=== PATIENT | male | born 1945 | race Caucasian/White ===

== ENCOUNTER 2017-07-18 20:41 | Inpatient (IN) | payer MEDICARE, BC ==
[~2017-07-18] VITALS: Ht 170.2 cm; Wt 68.0 kg
[~2017-07-18 20:41] MED LIST: BACITRACIN15 GM TOPIC; BACTRIM DS TAB1 EAC1 ORAL; CEPHALEXIN500 MG ORAL; CYCLOBENZAPRINE10 MG ORAL; FERROUS SULFAT325 MG ORAL; FLUOXETINE HCL40 MG ORAL; FOLIC ACID1 MG ORAL; HYTRIN2 MG PO; KEFLEX500 MG ORAL; LEVOTHYROXINE25 MCG ORAL; NKM; SILVADENE CREAM50 GM TOP; VICODIN 5-3001 EACH ORAL; ZOCOR20 M1 ORAL
[2017-07-18] MEDS ORDERED: TRAMADOL HCL50 MG ORAL (20:52)
[2017-07-18] MEDS ORDERED: BUPROPION HCL100 MG ORAL (20:52)
[2017-07-18] MEDS ORDERED: AMLODIPINE BES2.5 MG ORAL (20:52)
[2017-07-18 21:22] VITALS: BP 179/83
--- NOTE | 2017-07-18 21:25 | Emergency Room Report ---
History of Present Illness General Chief Complaint: Pain Source: Patient Present Illness HPI 72-year-old male, history of hypertension, frequent falls, coming from home for right buttocks hematoma. Patient states that he normally falls about once a month. States that yesterday he fell, felt very dizzy and then fell to the ground. He states that he likely lost consciousness because he woke up on the floor. Sustained a large hematoma to his right buttocks. He lives by himself, no home health aid. States that he has not really been eating or drinking today. Denies any headache no nausea no vomiting. Allergies: Coded Allergies: No Known Allergies (Unverified , 02/20/14) Patient History Past Medical History: see triage record Past Surgical History: none Pertinent Family History: none Reviewed Nursing Documentation: PMH: Agreed; PSxH: Agreed Nursing Documentation-PMH Hx Hypertension: Yes Hx Cancer: Yes - 2001 throat cancer Hx Gastrointestinal Problems: Yes Hx Neurological Problems: Yes Hx Head Trauma: Yes Hx Tremors: Yes Hx Dizziness: Yes Hx Headaches: Yes Review of Systems All Other Systems: negative except mentioned in HPI Physical Exam Vital Signs Date Time Temp Pulse Resp B/P (MAP) Pulse Ox O2 Delivery O2 Flow Rate FiO2 07/18/17 20:44 98.3 110 18 186/92 96 Room Air 98.2 Sp02 EP Interpretation: reviewed, normal General Appearance: alert, GCS 15, moderate distress Head: normocephalic, atraumatic Eyes: bilateral eye normal inspection, bilateral eye PERRL, bilateral eye EOMI ENT: normal ENT inspection, normal pharynx, normal voice, moist mucus membranes Neck: normal inspection, full range of motion, supple, no meningismus, no bony tend Respiratory: normal inspection, lungs clear, normal breath sounds, no respiratory distress, no retraction, no wheezing, speaking full sentences, chest symmetrical Cardiovascular #1: normal inspection, regular rate, rhythm, no edema, normal capillary refill Cardiovascular #2: 2+ radial (R), 2+ radial (L) Gastrointestinal: normal inspection, non tender, soft, non-distended, no guarding Genitourinary: no CVA tenderness Musculoskeletal: other - Right buttocks with large hard hematoma, significant amount of ecchymosis, no other signs of trauma and other extremity, full range of motion, able to stand on both lower extremities without issue Neurologic: normal inspection, alert, oriented x3, responsive, motor strength/ tone normal, sensory intact, normal gait, speech normal Psychiatric: normal inspection, judgement/insight normal, memory normal Skin: normal inspection, normal color, no rash, warm/dry, well hydrated, normal turgor Medical Decision Making Diagnostic Impression: Primary Impression: Traumatic hematoma of buttock Additional Impressions: Syncope Frequent falls ER Course 72-year-old male with syncopal episode, traumatic hematoma right buttocks DDX: Vasovagal vs. orthostatic / hypovolemic/dehydration vs. cardiac arrhythmia (SVT , Afib) vs. cardiac (, ACS) vs. PE vs. metabolic (hypoglycemia, hypoxia), vs neuro (seizure, CVA, intracranial bleed) Traumatic injury of right buttocks, no other signs of injury Plan: bgm, cbc, bmp, ekg, cxr consider IVF CT head ER course: Patient has been monitored during ED stay, HD stable pt unable to provide urine sample at this time nontoxic at bedside Disposition: Patient is to be admitted to telemetry Patient signed out to Dr. Coppola, who has accepted patient for admission. Please note that this Emergency Department Report was dictated using [employer] or ranch animal caretaker technology software, occasionally this can lead to erroneous entry secondary to interpretation by the dictation equipment. EKG Diagnostic Results EP Interpretation: Yes Rate: normal Rhythm: NSR ST Segments: T-wave inversion in V3 V4 V5 ASA given to patient: No Rhythm Strip EP Interpretation: Yes Rate: 90 Rhythm: NSR, no PVCs, no ectopy Chest X-ray CXR: Ordered: Yes 1 view Indication: Syncope EP interpretation: Yes Interpretation: No consolidation, no effusion, no PTX, no acute cardiopulmonary disease Impression: No acute disease Electronically signed by Carlos Dumont MD Laboratory Tests Test 07/18/17 21:15 White Blood Count 6.4 K/UL (4.8-10.8) Red Blood Count 3.84 M/UL (4.70-6.10) L Hemoglobin 12.9 G/DL (14.2-18.0) L Hematocrit 37.3 % (42.0-52.0) L Mean Corpuscular Volume 97 FL (80-99) Mean Corpuscular Hemoglobin 33.5 PG (27.0-31.0) H Mean Corpuscular Hemoglobin Concent 34.5 G/DL (32.0-36.0) Red Cell Distribution Width 11.2 % (11.6-14.8) L Platelet Count 149 K/UL (150-450) L Mean Platelet Volume 7.3 FL (6.5-10.1) Neutrophils (%) (Auto) 80.9 % (45.0-75.0) H Lymphocytes (%) (Auto) 9.0 % (20.0-45.0) L Monocytes (%) (Auto) 9.4 % (1.0-10.0) Eosinophils (%) (Auto) 0.1 % (0.0-3.0) Basophils (%) (Auto) 0.7 % (0.0-2.0) Prothrombin Time 10.0 SEC (9.30-11.50) Prothrombin Time INR 1.0 (0.9-1.1) PTT 30 SEC (23-33) Sodium Level 144 MMOL/L (136-145) Potassium Level 4.2 MMOL/L (3.5-5.1) Chloride Level 103 MMOL/L (98-107) Carbon Dioxide Level 31 MMOL/L (21-32) Anion Gap 10 mmol/L (5-15) Blood Urea Nitrogen 9 mg/dL (7-18) Creatinine 0.9 MG/DL (0.55-1.30) Estimate Glomerular Filtration Rate > 60 mL/min (>60) Glucose Level 134 MG/DL (74-106) H Calcium Level 8.7 MG/DL (8.5-10.1) Total Bilirubin 0.8 MG/DL (0.2-1.0) Aspartate Amino Transferase (AST) 22 U/L (15-37) Alanine Aminotransferase (ALT) 36 U/L (12-78) Alkaline Phosphatase 60 U/L (46-116) Total Creatine Kinase 66 U/L (26-308) Troponin I 0.000 ng/mL (0.000-0.056) Pro-B-Type Natriuretic Peptide 154 pg/mL (0-125) H Total Protein 6.8 G/DL (6.4-8.2) Albumin 4.4 G/DL (3.4-5.0) Globulin 2.4 g/dL Albumin/Globulin Ratio 1.8 (1.0-2.7) Last Vital Signs Date Time Temp Pulse Resp B/P (MAP) Pulse Ox O2 Delivery O2 Flow Rate FiO2 07/18/17 20:44 98.3 110 18 186/92 96 Room Air 98.2 Disposition: ADMITTED INPATIENT Condition: Serious Referrals: NON PHYSICIAN (PCP) Carlos Dumont M.D. Jul 18, 2017 21:25
[2017-07-18 21:37] LABS: BASOPHILS % (AUTO) 0.7 % (0.0-2.0); EOSINOPHILS % (AUTO) 0.1 % (0.0-3.0); HEMATOCRIT 37.3 % (42.0-52.0); HEMOGLOBIN 12.9 G/DL (14.2-18.0); MEAN CORPUSCULAR VOLUME 97 FL (80-99); MONOCYTES % (AUTO) 9.4 % (1.0-10.0); NEUTROPHILS % (AUTO) 80.9 % (45.0-75.0); PLATELET COUNT 149 K/UL (150-450); RED BLOOD COUNT 3.84 M/UL (4.70-6.10); RED CELL DISTRIBUTION WIDTH 11.2 % (11.6-14.8); WHITE BLOOD COUNT 6.4 K/UL (4.8-10.8)
[2017-07-18 22:00] LABS: ALANINE AMINOTRANSFERASE 36 U/L (12-78); ALBUMIN 4.4 G/DL (3.4-5.0); ALBUMIN/GLOBULIN RATIO 1.8 (1.0-2.7); ALKALINE PHOSPHATASE 60 U/L (46-116); ANION GAP 10 mmol/L (5-15); ASPARTATE AMINO TRANSFERASE 22 U/L (15-37); BILIRUBIN,TOTAL 0.8 MG/DL (0.2-1.0); BLOOD UREA NITROGEN 9 mg/dL (7-18); CALCIUM 8.7 MG/DL (8.5-10.1); CARBON DIOXIDE 31 MMOL/L (21-32); CHLORIDE 103 MMOL/L (98-107); CREATINE KINASE 66 U/L (26-308); CREATININE 0.9 MG/DL (0.55-1.30); POTASSIUM 4.2 MMOL/L (3.5-5.1); SODIUM 144 MMOL/L (136-145)
[2017-07-18 23:09] VITALS: BP 148/79
[2017-07-18 23:50] VITALS: BP 144/80
[2017-07-19] MEDS ORDERED: D5 1/2NS 1,000 ML IV ONE (02:00)
[2017-07-19] MEDS: traMADol 50mg tab ORAL PRN ×2 (02:03→09:15)
[2017-07-19 03:40] LABS: APPEARANCE,URINE CLEAR; BILIRUBIN, URINE NEGATIVE (NEGATIVE); COLOR,URINE PALE YELLOW; GLUCOSE, URINE (UA) NEGATIVE (NEGATIVE); KETONES,URINE NEGATIVE (NEGATIVE); LEUKOCYTE ESTERASE ,URINE 1+ (NEGATIVE); NITRITE,URINE NEGATIVE (NEGATIVE); PH,URINE 6 (4.5-8.0); PROTEIN,URINE NEGATIVE (NEGATIVE); UROBILINOGEN,URINE NORMAL MG/DL (0.0-1.0)
[2017-07-19 04:00] VITALS: BP 144/79
[2017-07-19] MEDS: Levothyroxine 25mcg tab ORAL SCH (06:46)
[2017-07-19 07:15] LABS: BASOPHILS % (AUTO) 0.6 % (0.0-2.0); EOSINOPHILS % (AUTO) 0.2 % (0.0-3.0); HEMATOCRIT 34.9 % (42.0-52.0); HEMOGLOBIN 11.6 G/DL (14.2-18.0); LYMPHOCYTES % (AUTO) 14.8 % (20.0-45.0); MEAN CORPUSCULAR VOLUME 97 FL (80-99); MONOCYTES % (AUTO) 11.3 % (1.0-10.0); NEUTROPHILS % (AUTO) 73.2 % (45.0-75.0); PLATELET COUNT 118 K/UL (150-450); RED BLOOD COUNT 3.61 M/UL (4.70-6.10); RED CELL DISTRIBUTION WIDTH 11.3 % (11.6-14.8); WHITE BLOOD COUNT 5.4 K/UL (4.8-10.8)
[2017-07-19 07:41] LABS: ALANINE AMINOTRANSFERASE 31 U/L (12-78); ALBUMIN 3.7 G/DL (3.4-5.0); ALBUMIN/GLOBULIN RATIO 1.6 (1.0-2.7); ALKALINE PHOSPHATASE 53 U/L (46-116); ANION GAP 6 mmol/L (5-15); ASPARTATE AMINO TRANSFERASE 19 U/L (15-37); BILIRUBIN,TOTAL 0.9 MG/DL (0.2-1.0); BLOOD UREA NITROGEN 6 mg/dL (7-18); CALCIUM 8.4 MG/DL (8.5-10.1); CARBON DIOXIDE 33 MMOL/L (21-32); CHLORIDE 103 MMOL/L (98-107); CREATININE 0.7 MG/DL (0.55-1.30); PHOSPHORUS 3.4 MG/DL (2.5-4.9); POTASSIUM 3.9 MMOL/L (3.5-5.1); SODIUM 141 MMOL/L (136-145)
[2017-07-19 08:00] VITALS: BP 132/86
[2017-07-19] MEDS: BuPROPion SR 150mg tab ORAL SCH (09:14)
--- NOTE | 2017-07-19 11:24 | Diagnostic Imaging Report ---
Indication: Pain Technique: Continuous helical CT scanning of the head was performed utilizing automated exposure control without intravenous contrast material. Axial and coronal reconstructions were obtained. Comparison: None CT dose: Total DLP 1333.86 mGycm; CTDI vol 70.38 mGy Findings: There is no acute intracranial hemorrhage, mass effect or cortical edema. The ventricles, cisterns and sulci are prominent consistent with atrophy. Periventricular hypoattenuation is seen, a nonspecific finding. The posterior fossa and fourth ventricle are unremarkable. Sellar and suprasellar regions are grossly unremarkable. Visualized paranasal sinuses are clear. There is partial fluid opacification of the bilateral mastoid air cells, left greater than right. No focal lesions of the bony calvarium or soft tissues of the scalp are seen. Atherosclerotic vascular calcifications noted. IMPRESSION: No evidence of acute intracranial hemorrhage, mass effect or cortical edema. MRI may be obtained for more sensitive evaluation as clinically indicated. Atrophy and nonspecific periventricular hypoattenuation suggestive of chronic ischemic microvascular changes. Bilateral mastoid fluid. Correlate clinically to assess for mastoiditis. This corresponds with the statrad preliminary report. The CT scanner at [facility] is accredited by the [employer] and the scans are performed using protocols designed to limit radiation exposure to as low as reasonably achievable to attain images of sufficient resolution adequate for diagnostic evaluation.
[2017-07-19 12:00] VITALS: BP 116/76
--- NOTE | 2017-07-19 13:03 | Diagnostic Imaging Report ---
Indication: Pain Technique: XRAY Chest 1v Comparison: None Findings: Heart size and mediastinal contours are within normal limits given technique. Atherosclerotic changes noted. There is no focal consolidation, pneumothorax or pleural effusion. Orthopedic hardware over the left clavicle. There are degenerative changes of the spine. No acute osseous abnormality seen. Impression: . Limited exam due to patient rotation. No definite radiographic evidence of acute cardiopulmonary disease.
--- NOTE | 2017-07-19 14:36 | History & Physical ---
History and Physical History & Physicial Dictated for Int Med-Dr Coppola no. [id number]. KILEY MCKENNA Jul 19, 2017 14:36
--- NOTE | 2017-07-19 15:29 | Cardiac Electrophysiology PN ---
Subjective Subjective [id number] Objective Last 24 Hour Vital Signs Date Time Temp Pulse Resp B/P (MAP) Pulse Ox O2 Delivery O2 Flow Rate FiO2 07/19/17 12:00 97.5 86 19 116/76 98 Room Air 97.5 07/19/17 09:14 80 132/86 07/19/17 09:00 78 86 88 07/19/17 08:00 98.0 80 20 132/86 98 Room Air 98.0 07/19/17 08:00 76 07/19/17 06:52 79 76 95 07/19/17 04:00 99.0 75 20 144/79 97 Room Air 99.0 07/19/17 04:00 83 07/19/17 00:00 81 07/18/17 23:50 98.8 80 20 144/80 97 Room Air 98.8 07/18/17 23:47 98.2 84 18 148/79 99 Room Air 98.2 07/18/17 23:09 98.2 84 18 148/79 99 Room Air 98.2 07/18/17 21:22 98.2 105 18 179/83 96 Room Air 98.2 07/18/17 20:44 98.3 110 18 186/92 96 Room Air 98.2 Intake and Output 07/18/17 07/19/17 19:00 07:00 Intake Total 1125 ml Output Total 300 ml Balance 825 ml Intake Oral 900 ml IV Total 225 ml Output Urine Total 300 ml # Voids 7 # Bowel Movements 2 Laboratory Tests Test 07/18/17 21:15 07/19/17 02:20 07/19/17 06:45 White Blood Count 6.4 K/UL (4.8-10.8) 5.4 K/UL (4.8-10.8) Red Blood Count 3.84 M/UL (4.70-6.10) L 3.61 M/UL (4.70-6.10) L Hemoglobin 12.9 G/DL (14.2-18.0) L 11.6 G/DL (14.2-18.0) L Hematocrit 37.3 % (42.0-52.0) L 34.9 % (42.0-52.0) L Mean Corpuscular Volume 97 FL (80-99) 97 FL (80-99) Mean Corpuscular Hemoglobin 33.5 PG (27.0-31.0) H 32.1 PG (27.0-31.0) H Mean Corpuscular Hemoglobin Concent 34.5 G/DL (32.0-36.0) 33.2 G/DL (32.0-36.0) Red Cell Distribution Width 11.2 % (11.6-14.8) L 11.3 % (11.6-14.8) L Platelet Count 149 K/UL (150-450) L 118 K/UL (150-450) L Mean Platelet Volume 7.3 FL (6.5-10.1) 7.2 FL (6.5-10.1) Neutrophils (%) (Auto) 80.9 % (45.0-75.0) H 73.2 % (45.0-75.0) Lymphocytes (%) (Auto) 9.0 % (20.0-45.0) L 14.8 % (20.0-45.0) L Monocytes (%) (Auto) 9.4 % (1.0-10.0) 11.3 % (1.0-10.0) H Eosinophils (%) (Auto) 0.1 % (0.0-3.0) 0.2 % (0.0-3.0) Basophils (%) (Auto) 0.7 % (0.0-2.0) 0.6 % (0.0-2.0) Prothrombin Time 10.0 SEC (9.30-11.50) Prothromb Time International Ratio 1.0 (0.9-1.1) Activated Partial Thromboplast Time 30 SEC (23-33) Sodium Level 144 MMOL/L (136-145) 141 MMOL/L (136-145) Potassium Level 4.2 MMOL/L (3.5-5.1) 3.9 MMOL/L (3.5-5.1) Chloride Level 103 MMOL/L (98-107) 103 MMOL/L (98-107) Carbon Dioxide Level 31 MMOL/L (21-32) 33 MMOL/L (21-32) H Anion Gap 10 mmol/L (5-15) 6 mmol/L (5-15) Blood Urea Nitrogen 9 mg/dL (7-18) 6 mg/dL (7-18) L Creatinine 0.9 MG/DL (0.55-1.30) 0.7 MG/DL (0.55-1.30) Estimat Glomerular Filtration Rate > 60 mL/min (>60) > 60 mL/min (>60) Glucose Level 134 MG/DL (74-106) H 115 MG/DL (74-106) H Calcium Level 8.7 MG/DL (8.5-10.1) 8.4 MG/DL (8.5-10.1) L Total Bilirubin 0.8 MG/DL (0.2-1.0) 0.9 MG/DL (0.2-1.0) Aspartate Amino Transf (AST/SGOT) 22 U/L (15-37) 19 U/L (15-37) Alanine Aminotransferase (ALT/SGPT) 36 U/L (12-78) 31 U/L (12-78) Alkaline Phosphatase 60 U/L (46-116) 53 U/L (46-116) Total Creatine Kinase 66 U/L (26-308) Troponin I 0.000 ng/mL (0.000-0.056) 0.000 ng/mL (0.000-0.056) Pro-B-Type Natriuretic Peptide 154 pg/mL (0-125) H Total Protein 6.8 G/DL (6.4-8.2) 6.0 G/DL (6.4-8.2) L Albumin 4.4 G/DL (3.4-5.0) 3.7 G/DL (3.4-5.0) Globulin 2.4 g/dL 2.3 g/dL Albumin/Globulin Ratio 1.8 (1.0-2.7) 1.6 (1.0-2.7) Urine Color Pale yellow Urine Appearance Clear Urine pH 6 (4.5-8.0) Urine Specific Center 1.010 (1.005-1.035) Urine Protein Negative (NEGATIVE) Urine Glucose (UA) Negative (NEGATIVE) Urine Ketones Negative (NEGATIVE) Urine Occult Blood 1+ (NEGATIVE) H Urine Nitrite Negative (NEGATIVE) Urine Bilirubin Negative (NEGATIVE) Urine Urobilinogen Normal MG/DL (0.0-1.0) Urine Leukocyte Esterase 1+ (NEGATIVE) H Urine RBC 0-2 /HPF (0 - 0) H Urine WBC 0-2 /HPF (0 - 0) Urine Squamous Epithelial Cells Few /LPF (NONE/OCC) Urine Bacteria Few /HPF (NONE) Phosphorus Level 3.4 MG/DL (2.5-4.9) Magnesium Level 1.7 MG/DL (1.8-2.4) L Henry Wolf MD Jul 19, 2017 15:29
--- NOTE | 2017-07-19 15:44 | Diagnostic Imaging Report ---
Indication: Pain Technique: XRAY Hip Routine 2v+ R Comparison: None Findings: There is no definite/displaced hip fracture. Degenerative change of the hip is seen with subchondral sclerosis. No radiopaque foreign body or focal soft tissue abnormality appreciated. Impression: No definite/displaced acute fracture. No dislocation.
[2017-07-19 16:00] VITALS: BP 147/90
--- NOTE | 2017-07-19 16:26 | Diagnostic Imaging Report ---
Indication: Pain status post fall Technique: CT osseous pelvis was performed utilizing automated exposure control without intravenous contrast material. Axial, sagittal and coronal images were generated. CT dose: Total DLP 392 mGycm; CTDI vol 10.8 mGy Comparison: Correlation made to concurrent radiographs Findings: There is no acute fracture or dislocation. Mild degenerative change of the bilateral hips is noted with mild superior joint space narrowing, subchondral sclerosis and cystic change as well as small marginal osteophytes. Mild enthesopathic changes are noted about the pelvic bones. The symphysis pubis and bilateral sacroiliac joints are preserved. Degenerative changes of the lower lumbar spine are partially visualized. Images through the visceral pelvis demonstrate no evidence of bowel obstruction. The aorta and iliac arteries are normal in caliber with moderate atherosclerotic calcification. Partially imaged lower pole of the right kidney is grossly unremarkable. There is under distention versus thickening of the bladder wall. Prostate is mildly enlarged with central coarse calcifications. In the subcutaneous tissues of the right gluteal region there is a hyperdense collection measuring 7.2 x 3.5 cm with surrounding soft tissue stranding. This may represent a small subcutaneous/intramuscular hematoma. IMPRESSION: Mild degenerative change of the bilateral hips. No acute fracture or dislocation. Hyperdense collection in the posterior gluteal soft tissues on the right likely representing a gluteal subcutaneous/intramuscular hematoma. There is surrounding soft tissue stranding. No well-defined/drainable fluid collection to suggest abscess. Underdistention of the bladder versus bladder wall thickening. Correlate with urinalysis to exclude cystitis. Mild prostatomegaly. Atherosclerosis. The CT scanner at [facility] is accredited by the [employer] and the scans are performed using protocols designed to limit radiation exposure to as low as reasonably achievable to attain images of sufficient resolution adequate for diagnostic evaluation.
--- NOTE | 2017-07-19 18:00 | History and Physical Report ---
DATE OF ADMISSION: 07/18/2017 CHIEF COMPLAINT: The patient is a 72-year-old white male, who presents with a chief complaint of right hip pain. HISTORY OF PRESENT ILLNESS: The patient has a history of degenerative disease of the cervical spine. The patient has undergone epidural injections. The patient also has a history of vertigo. History of present illness began on 07/17/2017. The patient experienced syncopal episode. The patient states he lost consciousness. The patient fell striking his right buttock. The patient presented to [place] emergency room. The patient is admitted for syncopal episode to rule out acute coronary syndrome versus acute cerebrovascular accident. PAST MEDICAL HISTORY: Significant for, 1. Hypertension. 2. Hypothyroidism. 3. Hypercholesterolemia. 4. Squamous cell carcinoma of the throat in 2001, status post surgery and radiation therapy. PAST SURGICAL HISTORY: Significant for, 1. Appendectomy and tonsillectomy. 2. Resection of squamous cell throat cancer in 2001. CURRENT MEDICATIONS: 1. Amlodipine 2.5 mg p.o. daily. 2. Wellbutrin XL 150 mg p.o. daily. 3. Flexeril 10 mg p.o. at bedtime. 4. Iron sulfate 325 mg p.o. twice daily. 5. Prozac 40 mg p.o. daily. 6. Folic acid 1 mg p.o. daily. 7. Vicodin 5/300 one tab p.o. q.6 hours p.r.n. 8. Levoxyl 0.025 mg p.o. daily. 9. Zocor 20 mg p.o. at bedtime. 10. Terazosin 2 mg p.o. at bedtime. 11. Tramadol 50 mg p.o. q.6 hours p.r.n. 12. Bactrim double-strength one tablet p.o. twice daily. ALLERGIES: No known drug allergies. SOCIAL HISTORY: The patient is . The patient denies tobacco use. The patient admits to alcohol use of two glasses of wine daily. The patient is retired. REVIEW OF SYSTEMS: CONSTITUTIONAL: The patient denies weight loss or weight gain. The patient denies fevers or chills. HEENT: The patient denies ear or throat pain. The patient denies headache. CARDIOVASCULAR: The patient denies palpitations or chest pain. CHEST: The patient denies wheeze or shortness of breath. ABDOMEN: The patient denies nausea, vomiting, diarrhea, or constipation. GENITOURINARY: The patient denies dysuria or increased frequency of urination. NEUROMUSCULAR: The patient complains of right buttock pain as above. The patient denies seizures or generalized weakness. The patient complains of vertigo as above. PHYSICAL EXAMINATION: VITAL SIGNS: Temperature 99.0, respirations 20, pulse 75, and blood pressure 144/79. GENERAL: The patient is a well-developed and well-nourished white male, in no apparent distress. HEENT: Eyes, pupils are equal and responsive to light and accommodation. Extraocular movements are intact. NECK: Supple without lymphadenopathy. LUNGS: Clear to auscultation bilaterally without wheezes or rales. CARDIOVASCULAR: Regular rhythm and rate. S1 and S2 are normal without murmurs, rubs, or gallops. ABDOMEN: Soft, nontender, and nondistended. Positive bowel sounds. No evidence of hepatosplenomegaly. Currently, no rebound or guarding noted. EXTREMITIES: Negative for clubbing, cyanosis, or edema. There is a large approximate 30 cm diameter ecchymosis on the right buttock with approximate 20 cm hematoma. Hip shows normal flexion and extension. NEUROLOGIC: Cranial nerves II through XII are grossly intact without focal deficits. Motor strength is 5/5 bilaterally. Deep tendon reflexes are 2+ plantar. LABORATORY STUDIES: WBC 6.4, hemoglobin 12.9, hematocrit 37.3, and platelets 149,000. Sodium 144, potassium 4.2, chloride 103, CO2 31, BUN 9, creatinine 0.9, and glucose 134. Troponin 0.0. BNP elevated slightly of 154. Protime 10.0, INR 1.0, and PTT 30. Urinalysis showed 1+ occult blood and 1+ leukocyte esterase with 0 to [address] scan of the brain failed to demonstrate acute hemorrhage or infarct. An x-ray and CT scan of the right hip is pending. An EKG demonstrated normal sinus rhythm at 90 beats per minute. There are no acute ST changes or Q-waves noted. ASSESSMENT: This is a 72-year-old white male. 1. Syncopal episode. 2. Hematoma of the right buttock. 3. Hypertension. 4. Hypercholesterolemia. 5. Hypothyroidism. 6. History of squamous cell cancer of the throat. 7. Degenerative disc disease of the cervical spine. TREATMENT: 1. Syncopal episode. A Neurology consultation has been obtained with Dr. Gordon. We will follow recommendation of Dr. Gordon. Differential includes syncope versus acute cerebrovascular accident. We will follow recommendations of Neurology. A Cardiology consultation has been obtained with Dr. Henry Wolf as well. 2. Hematoma of the right buttock. An x-ray of the right hip is pending. A CT scan of the right hip is pending. A fracture is a possibility given the large size of the hematoma. 3. Hypertension. Continue Norvasc as above. 4. Hypothyroidism. Continue Synthroid as above. 5. Hypercholesterolemia. Continue Zocor as above. 6. Depression. Continue Wellbutrin as above. Eloy Rivera M.D. DR: JAMAL JOB#: [id number] CC:
[2017-07-19 20:00] VITALS: BP_SYST 122; BP_SYST 128; BP_SYST 138; BP_DIAS 70; BP_DIAS 73; BP_DIAS 74
--- NOTE | 2017-07-19 20:45 | Consultation ---
DATE OF CONSULTATION: 07/19/2017 CARDIOLOGY CONSULTATION CONSULTING PHYSICIAN: Henry Wolf M.D. REFERRING PHYSICIAN: Eladio Coppola M.D. REASON FOR CONSULTATION: Management of hypertension and syncope. HISTORY OF PRESENT ILLNESS: The patient is a 72-year-old gentleman with history of hypertension and recurrent falls comes from home for right buttock hematoma. The patient apparently has been falling about once a month and yesterday he felt very dizzy and fell to the ground. He also lost consciousness and woke up on the floor and noticed a large hematoma on his right buttock. The patient lives by himself with no home nurse. The patient today has had some cervical problems for which he will be getting injection. REVIEW OF SYSTEMS: Review of systems was performed and was negative other than what was mentioned in the history of present illness. PAST MEDICAL HISTORY: 1. Hypertension. 2. History of throat cancer in 2001. 3. Cervical spine problem. 4. Dizziness. SOCIAL HISTORY: He lives at home. Does not smoke or drink alcohol. FAMILY HISTORY: Noncontributory. LABORATORY DATA: Labs show white count of 5.4, hemoglobin 11.0, hematocrit 35, and platelet count 118. Sodium 141, potassium 3.9, BUN of 16, creatinine 0.7, and glucose of 115. Troponin negative x2. BNP is 154. ASSESSMENT AND PLAN: 1. Syncopal episodes. The etiology is not clear, but the patient has had multiple falls in the past. The patient was already ruled out for myocardial infarction. A 2D echocardiogram and preliminary report showed ejection fraction of 65% to 70%, no evidence of aortic stenosis. A Neurologic evaluation is also pending. 2. Hypertension, on . 3. Hypothyroidism, on Synthroid. 4. Hyperlipidemia, on Lipitor. 5. History of cervical spine disease. Thank you very much, Dr. Coppola, for allowing me to participate in the care of this patient. Please do not hesitate to contact if you have any questions regarding my evaluation. Henry Wolf M.D. DR: Eloisa JOB#: [id number] CC:
[2017-07-19] MEDS: Zolpidem 5mg tab ORAL PRN (21:17)
[2017-07-19] MEDS: Terazosin 2mg cap ORAL SCH (21:17)
[2017-07-20] VITALS: BP 141/78
[2017-07-20 04:00] VITALS: BP_SYST 135; BP_SYST 153; BP_SYST 92; BP_DIAS 58; BP_DIAS 71; BP_DIAS 79
[2017-07-20] MEDS: Levothyroxine 25mcg tab ORAL SCH (07:08)
[2017-07-20 08:00] VITALS: BP 107/62
[2017-07-20] MEDS: BuPROPion SR 150mg tab ORAL SCH (09:34)
[2017-07-20 10:13] LABS: BASOPHILS % (AUTO) 0.5 % (0.0-2.0); EOSINOPHILS % (AUTO) 1.3 % (0.0-3.0); HEMATOCRIT 33.1 % (42.0-52.0); HEMOGLOBIN 11.3 G/DL (14.2-18.0); LYMPHOCYTES % (AUTO) 15.4 % (20.0-45.0); MEAN CORPUSCULAR VOLUME 97 FL (80-99); MONOCYTES % (AUTO) 9.3 % (1.0-10.0); NEUTROPHILS % (AUTO) 73.4 % (45.0-75.0); PLATELET COUNT 117 K/UL (150-450); RED BLOOD COUNT 3.41 M/UL (4.70-6.10); RED CELL DISTRIBUTION WIDTH 11.1 % (11.6-14.8); WHITE BLOOD COUNT 4.2 K/UL (4.8-10.8)
[2017-07-20 10:48] LABS: ANION GAP 7 mmol/L (5-15); BLOOD UREA NITROGEN 10 mg/dL (7-18); CALCIUM 8.1 MG/DL (8.5-10.1); CARBON DIOXIDE 30 MMOL/L (21-32); CHLORIDE 105 MMOL/L (98-107); CREATININE 0.7 MG/DL (0.55-1.30); POTASSIUM 3.5 MMOL/L (3.5-5.1); SODIUM 142 MMOL/L (136-145)
[2017-07-20 12:00] VITALS: BP 157/87
--- NOTE | 2017-07-20 12:08 | Neurology Progress Note ---
Objective Physical Exam Last Vital Signs Date Time Temp Pulse Resp B/P (MAP) Pulse Ox O2 Delivery O2 Flow Rate FiO2 07/20/17 09:34 83 107/62 07/20/17 08:00 97.8 20 98 Room Air 97.8 Laboratory Tests Test 07/20/17 09:00 White Blood Count 4.2 K/UL (4.8-10.8) L Red Blood Count 3.41 M/UL (4.70-6.10) L Hemoglobin 11.3 G/DL (14.2-18.0) L Hematocrit 33.1 % (42.0-52.0) L Mean Corpuscular Volume 97 FL (80-99) Mean Corpuscular Hemoglobin 33.0 PG (27.0-31.0) H Mean Corpuscular Hemoglobin Concent 34.0 G/DL (32.0-36.0) Red Cell Distribution Width 11.1 % (11.6-14.8) L Platelet Count 117 K/UL (150-450) L Mean Platelet Volume 8.4 FL (6.5-10.1) Neutrophils (%) (Auto) 73.4 % (45.0-75.0) Lymphocytes (%) (Auto) 15.4 % (20.0-45.0) L Monocytes (%) (Auto) 9.3 % (1.0-10.0) Eosinophils (%) (Auto) 1.3 % (0.0-3.0) Basophils (%) (Auto) 0.5 % (0.0-2.0) Sodium Level 142 MMOL/L (136-145) Potassium Level 3.5 MMOL/L (3.5-5.1) Chloride Level 105 MMOL/L (98-107) Carbon Dioxide Level 30 MMOL/L (21-32) Anion Gap 7 mmol/L (5-15) Blood Urea Nitrogen 10 mg/dL (7-18) Creatinine 0.7 MG/DL (0.55-1.30) Estimat Glomerular Filtration Rate > 60 mL/min (>60) Glucose Level 142 MG/DL (74-106) H Calcium Level 8.1 MG/DL (8.5-10.1) L Troponin I 0.000 ng/mL (0.000-0.056) Impression/Recommendations Problems: (1) Syncope (2) Cervical disc disorder with myelopathy, mid-cervical region, unspecified level (3) Frequent falls Status: stable, unchanged Recommendations #[id number] BRAYAN RAMOS Jul 20, 2017 12:08
--- NOTE | 2017-07-20 13:17 | Cardiac Electrophysiology PN ---
Assessment/Plan Assessment/Plan 1. Syncopal episode. The etiology is not clear, but the patient has had multiple falls in the past. The patient was already ruled out for myocardial infarction. A 2D echocardiogram showed ejection fraction of 65% to 70%, no evidence of aortic stenosis. A Neurologic evaluation is in progress per Dr. Gordon 2. Hypertension, on Norvasc 3. First degree AVB 4. Hyperlipidemia, on Lipitor. 5. History of cervical spine disease. 6. BPH On Hytrin 7. Hypothyroidism, on Synthroid. JAVON RN Subjective Subjective Comfortable in NAD. No chest pain. Was dizzy earlier today Objective Last 24 Hour Vital Signs Date Time Temp Pulse Resp B/P (MAP) Pulse Ox O2 Delivery O2 Flow Rate FiO2 07/20/17 09:34 83 107/62 07/20/17 08:00 97.8 83 20 107/62 98 Room Air 97.8 07/20/17 08:00 89 07/20/17 04:00 97.6 78 20 153/71 97 Room Air 97.6 88 135/79 96 92/58 07/20/17 04:00 81 07/20/17 00:00 98.2 81 22 141/78 96 Room Air 98.2 07/20/17 00:00 74 07/19/17 20:00 98.4 77 18 138/74 97 Room Air 98.4 81 128/70 85 122/73 07/19/17 20:00 85 07/19/17 17:40 87 80 75 07/19/17 16:00 70 07/19/17 16:00 95.0 87 20 147/90 98 Room Air 95.0 Intake and Output 07/19/17 07/20/17 19:00 07:00 Intake Total 300 ml Balance 300 ml Intake Oral 300 ml # Voids 3 Laboratory Tests Test 07/20/17 09:00 White Blood Count 4.2 K/UL (4.8-10.8) L Red Blood Count 3.41 M/UL (4.70-6.10) L Hemoglobin 11.3 G/DL (14.2-18.0) L Hematocrit 33.1 % (42.0-52.0) L Mean Corpuscular Volume 97 FL (80-99) Mean Corpuscular Hemoglobin 33.0 PG (27.0-31.0) H Mean Corpuscular Hemoglobin Concent 34.0 G/DL (32.0-36.0) Red Cell Distribution Width 11.1 % (11.6-14.8) L Platelet Count 117 K/UL (150-450) L Mean Platelet Volume 8.4 FL (6.5-10.1) Neutrophils (%) (Auto) 73.4 % (45.0-75.0) Lymphocytes (%) (Auto) 15.4 % (20.0-45.0) L Monocytes (%) (Auto) 9.3 % (1.0-10.0) Eosinophils (%) (Auto) 1.3 % (0.0-3.0) Basophils (%) (Auto) 0.5 % (0.0-2.0) Sodium Level 142 MMOL/L (136-145) Potassium Level 3.5 MMOL/L (3.5-5.1) Chloride Level 105 MMOL/L (98-107) Carbon Dioxide Level 30 MMOL/L (21-32) Anion Gap 7 mmol/L (5-15) Blood Urea Nitrogen 10 mg/dL (7-18) Creatinine 0.7 MG/DL (0.55-1.30) Estimat Glomerular Filtration Rate > 60 mL/min (>60) Glucose Level 142 MG/DL (74-106) H Calcium Level 8.1 MG/DL (8.5-10.1) L Troponin I 0.000 ng/mL (0.000-0.056) Objective HEENT: In Cervical Collar LUNGS: Clear CVS: RRR no G/R/M ABDOMEN: Soft EXT: No edema Henry Wolf MD Jul 20, 2017 13:17
[2017-07-20] MEDS: Aspirin EC 325mg tab ORAL SCH (13:49)
[2017-07-20 16:00] VITALS: BP 120/75
--- NOTE | 2017-07-20 16:33 | Internal Med Progress Note ---
Subjective Date of Service: Jul 20, 2017 Physician Name Kiley Mckenna Attending Physician Eladio Coppola MD Current Medications Medications (Trade) Dose Ordered Sig/Cassius Route PRN Reason Start Time Stop Time Status Last Admin Dose Admin Amlodipine Besylate (Norvasc) 2.5 mg DAILY ORAL 07/19/17 09:00 08/18/17 08:59 07/20/17 09:34 Aspirin (Ecotrin) 325 mg DAILY ORAL 07/20/17 13:00 08/19/17 12:59 07/20/17 13:49 Atorvastatin Calcium (Lipitor) 10 mg BEDTIME ORAL 07/19/17 21:00 08/18/17 20:59 07/19/17 21:17 Bupropion HCl (Wellbutrin SR) 150 mg DAILY ORAL 07/19/17 09:00 08/18/17 08:59 07/20/17 09:34 Folic Acid (Folate) 1 mg DAILY ORAL 07/19/17 09:00 08/18/17 08:59 07/20/17 09:34 Levothyroxine Sodium (Synthroid) 25 mcg DAILY@0630 ORAL 07/19/17 06:30 08/18/17 06:29 07/20/17 07:08 Sodium Chloride 1,000 ml @ 75 mls/hr [id number] IV 07/20/17 09:30 08/19/17 09:29 07/20/17 09:38 Terazosin HCl (Hytrin) 2 mg BEDTIME ORAL 07/19/17 21:00 08/18/17 20:59 07/19/17 21:17 Tramadol HCl (Ultram) 50 mg Q8H PRN ORAL Pain 07/19/17 01:00 07/26/17 00:59 07/19/17 09:15 Zolpidem Tartrate (Ambien) 5 mg HSPRN PRN ORAL Insomnia 07/19/17 20:45 07/26/17 20:44 07/19/17 21:17 Allergies: Coded Allergies: No Known Allergies (Unverified , 02/20/14) ROS Limited/Unobtainable: No Constitutional: Reports: no symptoms HEENT: Reports: no symptoms Cardiovascular: Reports: no symptoms Respiratory: Reports: no symptoms Gastrointestinal/Abdominal: Reports: no symptoms Genitourinary: Reports: no symptoms Neurologic/Psychiatric: Reports: no symptoms Subjective 72 YO M admitted with syncope and right buttock pain. Now hematoma right buttock. Cover for [facility] Hilario-Dr Coppola. Objective Last Vital Signs Date Time Temp Pulse Resp B/P (MAP) Pulse Ox O2 Delivery O2 Flow Rate FiO2 07/20/17 16:00 75 07/20/17 12:00 97.9 21 157/87 99 Room Air 97.9 General Appearance: WD/WN, no apparent distress, alert EENT: PERRL/EOMI, normal ENT inspection Neck: non-tender, normal alignment, supple, normal inspection Cardiovascular: normal peripheral pulses, normal rate, regular rhythm, no gallop/murmur, no JVD Respiratory/Chest: chest wall non-tender, lungs clear, normal breath sounds, no respiratory distress, no accessory muscle use Abdomen: normal bowel sounds, non tender, soft, no organomegaly, no mass Extremities: normal range of motion, non-tender Neurologic: pharmacy sales representative II-XII grossly normal, no motor/sensory deficits Skin: normal pigmentation, warm/dry Laboratory Tests Test 07/20/17 09:00 White Blood Count 4.2 K/UL (4.8-10.8) L Red Blood Count 3.41 M/UL (4.70-6.10) L Hemoglobin 11.3 G/DL (14.2-18.0) L Hematocrit 33.1 % (42.0-52.0) L Mean Corpuscular Volume 97 FL (80-99) Mean Corpuscular Hemoglobin 33.0 PG (27.0-31.0) H Mean Corpuscular Hemoglobin Concent 34.0 G/DL (32.0-36.0) Red Cell Distribution Width 11.1 % (11.6-14.8) L Platelet Count 117 K/UL (150-450) L Mean Platelet Volume 8.4 FL (6.5-10.1) Neutrophils (%) (Auto) 73.4 % (45.0-75.0) Lymphocytes (%) (Auto) 15.4 % (20.0-45.0) L Monocytes (%) (Auto) 9.3 % (1.0-10.0) Eosinophils (%) (Auto) 1.3 % (0.0-3.0) Basophils (%) (Auto) 0.5 % (0.0-2.0) Sodium Level 142 MMOL/L (136-145) Potassium Level 3.5 MMOL/L (3.5-5.1) Chloride Level 105 MMOL/L (98-107) Carbon Dioxide Level 30 MMOL/L (21-32) Anion Gap 7 mmol/L (5-15) Blood Urea Nitrogen 10 mg/dL (7-18) Creatinine 0.7 MG/DL (0.55-1.30) Estimat Glomerular Filtration Rate > 60 mL/min (>60) Glucose Level 142 MG/DL (74-106) H Calcium Level 8.1 MG/DL (8.5-10.1) L Troponin I 0.000 ng/mL (0.000-0.056) Intake and Output 07/19/17 07/20/17 19:00 07:00 Intake Total 300 ml Balance 300 ml Intake Oral 300 ml # Voids 3 Assessment/Plan Problem List: (1) Hypertension Assessment & Plan: Continue norvasc (2) Throat cancer (3) DDD (degenerative disc disease), cervical (4) Hypercholesteremia Assessment & Plan: Continue lipitor. (5) Hypothyroidism Assessment & Plan: Continue synthroid (6) Major depression (7) Syncope Assessment & Plan: Neuro and cardiology workup in progress (8) Traumatic hematoma of buttock Assessment & Plan: Right. CT=no fracture. Status: not improved KILEY MCKENNA Jul 20, 2017 16:32
[2017-07-20] MEDS: traMADol 50mg tab ORAL PRN (17:00)
--- NOTE | 2017-07-20 17:30 | Consultation ---
DATE OF CONSULTATION: 07/20/2017 NEUROLOGICAL CONSULTATION CONSULTING PHYSICIAN: Rosendo Gordon M.D. REQUESTING PHYSICIAN: Eladio Coppola M.D. HISTORY OF PRESENT ILLNESS: This 72-year-old man seen in neurological consultation to evaluate the episodes of transient loss of consciousness. The patient informed me that on the day prior to admission, after having dinner, he was in his kitchen when he found himself sitting on the ground with pain in the buttocks area. He seems slightly confused, but was able to get up on his own, called his in [place], went to bed trying to sleep, but following day, he went out, saw his neighbors, was advised to come for emergency care. The patient does not recall having urinary or bowel incontinence. No tongue biting. He never had seizures in the past and has no recollection of having episodes with loss of consciousness in the past. Following the event, he was found to have a hematoma in the gluteal region, continued to have lightheadedness, mainly positional, especially when standing and walking, and felt slightly nauseous. He is now also irritated because "he did not sleep at night." Sleep was interrupted by agitated neighbor and frequent nursing visits. As such, he is feeling worse today than yesterday than on admission. The patient recalled that he had a normal dinner with a glass of wine, but not sure if he had plenty of water. His initial laboratory work included mild anemia, hemoglobin 12.9, hematocrit 37.3. Coagulation panel was normal. Urinalysis, 1+ leukocyte esterase. Chemistry panel with glucose 134. BNP 154, but normal troponin, otherwise, normal chemistry panel. TSH elevated at 9.288. Imaging studies included chest x-ray, which revealed no acute abnormalities. CT scan of the brain, no evidence of acute intracranial abnormalities. There was atrophy and nonspecific periventricular hypoattenuation, bilateral mastoid fluid. CT scan of the hip was obtained revealing mild degenerative changes of both hips with hyperdense collection in the posterior gluteal soft tissues, more likely representing gluteal subcutaneous/intramuscular hematoma. Mild prostatomegaly and atherosclerosis noted. X-ray of the hips, no fracture, no dislocation. The patient's treatment following admission, the patient was maintained on tramadol for pain management, Hytrin, levothyroxine, Wellbutrin 150 mg daily, Lipitor, amlodipine, zolpidem. Prior to admission, his other treatment included Flexeril 10 mg at bedtime, Ferrous sulfate, fluoxetine 40 mg, Vicodin as needed, and Bactrim. ALLERGIES: None reported. SOCIAL HISTORY: Lives alone in apartment. His ex- lives in [place]. He has no caregiver. He likes to have a glass of wine daily with dinner, but no heavy liquor. Nonsmoker. No drug abuser. FAMILY HISTORY: Noncontributory. PAST MEDICAL HISTORY: The patient has a chronic cervical spondylosis, last 7 months in a hard cervical collar because of significant spinal stenosis, treated with epidural blocks, and offered surgical treatment, which he so far declined. He has a history of hypertension; history of throat cancer, treated in 2001 with surgery and radiation; history of recurrent falls without loss of consciousness. He has occasional "dizzy spells," explained to him result of his cervical problem. Depression anxiety. No chest pain. No palpitation. No respiratory difficulties. No abdominal pain or discomfort. No urine or bowel incontinence. PHYSICAL EXAMINATION: GENERAL: A well-developed, well-nourished man, not in acute distress, lying in bed, very irritable. VITAL SIGNS: His vital signs now are stable. Blood pressure 107/62, temperature 97.8. HEENT: Head, normocephalic. There is no evidence of trauma. NECK: In a hard cervical collar, very tender on palpation, range of motion not tested. EXTREMITIES: Upper and lower extremities without clubbing, cyanosis, or edema. There is a hematoma and tenderness in gluteal region noted. Peripheral pulses 1+ and symmetric. MENTAL STATUS: He is full alert, oriented x3 with no evidence of aphasia or apraxia. He is very irritable, tense, and anxious, demanding TV control, which is missing. Upset with the inability to sleep at night in this facility. CRANIAL NERVE II: Pupils both responding to light and accommodation. Extraocular movements intact. No nystagmus. Normal corneal responses. CRANIAL NERVE VII: Facial asymmetry. CRANIAL NERVE VIII: Normal hearing. CRANIAL NERVES IX THROUGH XII: Tongue is in midline. Symmetric palate elevation. MOTOR EXAMINATION: Revealed normal strength, 5/5 in all extremities, but increased muscle tone in both legs. Deep tendon reflexes very brisk, 3+ bilaterally. Plantar response is mute bilaterally. Sensory examination normal to pin stimulation. Gait, slow, slightly wobbly. IMPRESSION: 1. History of transient episode of unresponsiveness, unknown etiology, rule out orthostatic hypotension. No evidence of seizure activity. 2. 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 3. Anxiety and depression. 4. Hypertension. 5. Hypothyroidism. RECOMMENDATIONS: 1. Orthostatic blood pressure. 2. Oral hydration. 3. Ecotrin 81 mg daily. 4. Observe for any paroxysmal events. The patient continues with his current treatment including adjustment of hypothyroidism, blood pressure control, as well as addressing issue of underlying anxiety and depression. Thank you for allowing me to see this interesting patient in neurological consultation. Rosendo Gordon M.D. DR: JOSEFINA JOB#: [id number] CC:
--- NOTE | 2017-07-20 18:14 | Cardiology Report ---
APPROVED REPORT EKG Measurement Heart [id number] Sinus rhythm with 1st degree AV block Incomplete RBBB Nonspecific T wave abnormality Abnormal ECG
[2017-07-20 20:00] VITALS: BP 136/75
[2017-07-20] MEDS: Zolpidem 5mg tab ORAL PRN (21:29)
[2017-07-20] MEDS: Terazosin 2mg cap ORAL SCH (21:29)
[2017-07-21] VITALS: BP 125/72
[2017-07-21] MEDS: Levothyroxine 25mcg tab ORAL SCH (06:14)
[2017-07-21 07:13] LABS: ANION GAP 7 mmol/L (5-15); BASOPHILS % (AUTO) 0.5 % (0.0-2.0); BLOOD UREA NITROGEN 9 mg/dL (7-18); CARBON DIOXIDE 28 MMOL/L (21-32); CHLORIDE 107 MMOL/L (98-107); CREATININE 0.6 MG/DL (0.55-1.30); EOSINOPHILS % (AUTO) 1.9 % (0.0-3.0); HEMATOCRIT 30.5 % (42.0-52.0); HEMOGLOBIN 10.9 G/DL (14.2-18.0); LYMPHOCYTES % (AUTO) 22.3 % (20.0-45.0); MEAN CORPUSCULAR VOLUME 95 FL (80-99); MONOCYTES % (AUTO) 11.5 % (1.0-10.0); NEUTROPHILS % (AUTO) 63.8 % (45.0-75.0); PLATELET COUNT 107 K/UL (150-450); POTASSIUM 3.4 MMOL/L (3.5-5.1); RED CELL DISTRIBUTION WIDTH 10.7 % (11.6-14.8); SODIUM 142 MMOL/L (136-145); WHITE BLOOD COUNT 3.9 K/UL (4.8-10.8)
[2017-07-21 08:00] VITALS: BP 137/71
[2017-07-21] MEDS: BuPROPion SR 150mg tab ORAL SCH (08:25)
[2017-07-21] MEDS: Aspirin EC 325mg tab ORAL SCH (08:26)
[2017-07-21] MEDS: traMADol 50mg tab ORAL PRN (08:27)
[2017-07-21] MEDS ORDERED: Flu Vaccine Quadrivalent 0.5ml IM ONE (09:00)
[2017-07-21] MEDS ORDERED: Pneumococcal Vaccine 25mcg/0.5ml IM ONE (09:00)
--- NOTE | 2017-07-21 09:33 | Internal Med Progress Note ---
Subjective Date of Service: Jul 21, 2017 Physician Name Kiley Mckenna Attending Physician Eladio Coppola MD Current Medications Medications (Trade) Dose Ordered Sig/Cassius Route PRN Reason Start Time Stop Time Status Last Admin Dose Admin Amlodipine Besylate (Norvasc) 2.5 mg DAILY ORAL 07/19/17 09:00 08/18/17 08:59 07/21/17 08:25 Aspirin (Ecotrin) 325 mg DAILY ORAL 07/20/17 13:00 08/19/17 12:59 07/21/17 08:26 Atorvastatin Calcium (Lipitor) 10 mg BEDTIME ORAL 07/19/17 21:00 08/18/17 20:59 07/20/17 21:29 Bupropion HCl (Wellbutrin SR) 150 mg DAILY ORAL 07/19/17 09:00 08/18/17 08:59 07/21/17 08:25 Folic Acid (Folate) 1 mg DAILY ORAL 07/19/17 09:00 08/18/17 08:59 07/21/17 08:26 Levothyroxine Sodium (Synthroid) 25 mcg DAILY@0630 ORAL 07/19/17 06:30 08/18/17 06:29 07/21/17 06:14 Potassium Chloride (K-Dur) 40 meq ONCE ONCE ORAL 07/21/17 09:45 07/21/17 09:46 Sodium Chloride 1,000 ml @ 75 mls/hr [id number] IV 07/20/17 09:30 08/19/17 09:29 07/20/17 21:30 Terazosin HCl (Hytrin) 2 mg BEDTIME ORAL 07/19/17 21:00 08/18/17 20:59 07/20/17 21:29 Tramadol HCl (Ultram) 50 mg Q8H PRN ORAL Pain 07/19/17 01:00 07/26/17 00:59 07/21/17 08:27 Zolpidem Tartrate (Ambien) 5 mg HSPRN PRN ORAL Insomnia 07/19/17 20:45 07/26/17 20:44 07/20/17 21:29 Allergies: Coded Allergies: No Known Allergies (Unverified , 02/20/14) ROS Limited/Unobtainable: No Constitutional: Reports: no symptoms HEENT: Reports: no symptoms Cardiovascular: Reports: no symptoms Respiratory: Reports: no symptoms Gastrointestinal/Abdominal: Reports: no symptoms Genitourinary: Reports: no symptoms Neurologic/Psychiatric: Reports: no symptoms Subjective 72 YO M admitted with syncope and right buttock pain. Now hematoma right buttock. Cover for [facility]-Dr Coppola. Await ortho consult Objective Last Vital Signs Date Time Temp Pulse Resp B/P (MAP) Pulse Ox O2 Delivery O2 Flow Rate FiO2 07/21/17 08:25 79 137/71 07/21/17 08:00 97.2 19 98 Room Air 97.2 Laboratory Tests Test 07/21/17 06:20 White Blood Count 3.9 K/UL (4.8-10.8) L Red Blood Count 3.20 M/UL (4.70-6.10) L Hemoglobin 10.9 G/DL (14.2-18.0) L Hematocrit 30.5 % (42.0-52.0) L Mean Corpuscular Volume 95 FL (80-99) Mean Corpuscular Hemoglobin 34.0 PG (27.0-31.0) H Mean Corpuscular Hemoglobin Concent 35.7 G/DL (32.0-36.0) Red Cell Distribution Width 10.7 % (11.6-14.8) L Platelet Count 107 K/UL (150-450) L Mean Platelet Volume 7.2 FL (6.5-10.1) Neutrophils (%) (Auto) 63.8 % (45.0-75.0) Lymphocytes (%) (Auto) 22.3 % (20.0-45.0) Monocytes (%) (Auto) 11.5 % (1.0-10.0) H Eosinophils (%) (Auto) 1.9 % (0.0-3.0) Basophils (%) (Auto) 0.5 % (0.0-2.0) Sodium Level 142 MMOL/L (136-145) Potassium Level 3.4 MMOL/L (3.5-5.1) L Chloride Level 107 MMOL/L (98-107) Carbon Dioxide Level 28 MMOL/L (21-32) Anion Gap 7 mmol/L (5-15) Blood Urea Nitrogen 9 mg/dL (7-18) Creatinine 0.6 MG/DL (0.55-1.30) Estimat Glomerular Filtration Rate > 60 mL/min (>60) Glucose Level 99 MG/DL (74-106) Calcium Level 8.0 MG/DL (8.5-10.1) L Intake and Output 07/20/17 07/21/17 19:00 07:00 Intake Total 515 ml 840 ml Balance 515 ml 840 ml Intake Oral 440 ml 240 ml IV Total 75 ml 600 ml Objective General Appearance: WD/WN, no apparent distress, alert EENT: PERRL/EOMI, normal ENT inspection Neck: non-tender, normal alignment, supple, normal inspection Cardiovascular: normal peripheral pulses, normal rate, regular rhythm, no gallop/murmur, no JVD Respiratory/Chest: chest wall non-tender, lungs clear, normal breath sounds, no respiratory distress, no accessory muscle use Abdomen: normal bowel sounds, non tender, soft, no organomegaly, no mass Extremities: 30 cm ecchymosis right buttock with hematoma; normal range of motion, non-tender Neurologic: operations support analyst II-XII grossly normal, no motor/sensory deficits Skin: normal pigmentation, warm/dry Assessment/Plan Problem List: (1) Hypertension Assessment & Plan: Continue norvasc (2) Throat cancer Assessment & Plan: S/p resection (3) DDD (degenerative disc disease), cervical (4) Hypercholesteremia Assessment & Plan: Continue lipitor. (5) Hypothyroidism Assessment & Plan: Continue synthroid (6) Major depression (7) Syncope Assessment & Plan: Neuro and cardiology workup in progress (8) Traumatic hematoma of buttock Assessment & Plan: Right. CT=no fracture. (9) Hematoma of right thigh Assessment & Plan: Await Ortho consult. Status: not improved KILEY MCKENNA Jul 21, 2017 09:33
[2017-07-21] MEDS ORDERED: D5 1/2NS 1000ml IV ONE (10:17)
[2017-07-21 12:00] VITALS: BP 138/83
[2017-07-21 16:00] VITALS: BP_SYST 120; BP_SYST 125; BP_SYST 143; BP_DIAS 63; BP_DIAS 64; BP_DIAS 75
[2017-07-21 20:00] VITALS: BP 148/83
[2017-07-21] MEDS: Zolpidem 5mg tab ORAL PRN (21:36)
[2017-07-21] MEDS: Terazosin 2mg cap ORAL SCH (21:36)
[2017-07-22] VITALS: BP 133/72
[2017-07-22] MEDS: traMADol 50mg tab ORAL PRN (03:41)
--- NOTE | 2017-07-22 06:00 | Consultation ---
DATE OF CONSULTATION: 07/21/2017 CONSULTING PHYSICIAN: Lamin Fitzgerald M.D. REQUESTING PHYSICIAN: Eloy Rivera M.D. CHIEF COMPLAINT: Left posterior buttock pain. HISTORY OF PRESENT ILLNESS: The patient is a pleasant 72-year-old gentleman with a history of falls, who recently had what appears to be syncope, fall. He is not certain exactly the circumstances, which led to his fall. He subsequently was admitted. He has significant ecchymosis of the right hip area. Orthopedic consultation was obtained for further care and recommendation. The patient denies any groin pain. He is able to flex and extend his hip. He has discomfort along the posterior buttock along the hematoma. No numbness in the lower extremity. ASSESSMENT: Right hip hematoma. DISCUSSION: At this point, it does not look like he has any obvious bony involvement of the pelvis or the hip joint itself. subcutaneous hematoma. What I recommend is warm compress and then some massage to break down the hematoma. He has pretty sizable hematoma that measures approximately 10 cm x 6 cm on examination. I discussed with him that alternating between warm compress and ice should help along with myofascial release. If he has continued issues, then physical therapy as outpatient would be reasonable. In terms of his medical issues, he needs appropriate workup, which I will leave to the medical doctors. Please reconsult me as needed. Lamin Fitzgerald M.D. DR: SHERRY JOB#: [id number] CC:
[2017-07-22] MEDS: Levothyroxine 25mcg tab ORAL SCH (06:38)
[2017-07-22 06:41] LABS: BASOPHILS % (AUTO) 1.1 % (0.0-2.0); EOSINOPHILS % (AUTO) 2.5 % (0.0-3.0); HEMATOCRIT 32.3 % (42.0-52.0); HEMOGLOBIN 10.8 G/DL (14.2-18.0); LYMPHOCYTES % (AUTO) 20.2 % (20.0-45.0); MEAN CORPUSCULAR VOLUME 98 FL (80-99); MONOCYTES % (AUTO) 10.7 % (1.0-10.0); NEUTROPHILS % (AUTO) 65.4 % (45.0-75.0); PLATELET COUNT 131 K/UL (150-450); RED BLOOD COUNT 3.31 M/UL (4.70-6.10); RED CELL DISTRIBUTION WIDTH 11.4 % (11.6-14.8)
[2017-07-22 07:30] LABS: ANION GAP 7 mmol/L (5-15); BLOOD UREA NITROGEN 7 mg/dL (7-18); CALCIUM 8.1 MG/DL (8.5-10.1); CARBON DIOXIDE 29 MMOL/L (21-32); CHLORIDE 107 MMOL/L (98-107); CREATININE 0.6 MG/DL (0.55-1.30); SODIUM 142 MMOL/L (136-145)
[2017-07-22 08:00] VITALS: BP 126/63
--- NOTE | 2017-07-22 08:11 | Cardiology Report ---
APPROVED REPORT EXAM: Two-dimensional and M-mode echocardiogram with Doppler and color Doppler. INDICATION Syncope M-Mode DIMENSIONS IVSd1.5 (0.7-1.1cm)Left Atrium (MM)3.3 (1.6-4.0cm) LVDd4.3 (3.5-5.6cm)Aortic Root3.9 (2.0-3.7cm) PWd1.4 (0.7-1.1cm)Aortic Cusp Exc.2.2 (1.5-2.0cm) IVSs1.7 cm LVDs2.8 (2.5-4.0cm) PWs1.6 cm Normal left ventricular chamber size, systolic function and wall motion to extent visualized. Left ventricular ejection fraction estimated to be 65-70 %. Trace posterior pericardial effusion. Mild left ventricular hypertrophy by 2-D. All other cardiac chamber sizes are within normal limits. Normal pulmonic valve structure. Normal tricuspid valve structure. IVC at normal size with physiologic collapse. A color flow and spectral Doppler study was performed and revealed: No aortic regurgitation. Mild mitral regurgitation. Normal left ventricular diastolic function . Trace tricuspid regurgitation. Tricuspid systolic velocities suggests peak right ventricular systolic pressure of19 mmHg. No Pulmonic regurgitation present.
[2017-07-22] MEDS: Aspirin EC 325mg tab ORAL SCH (09:36)
[2017-07-22] MEDS: BuPROPion SR 150mg tab ORAL SCH (09:36)
--- NOTE | 2017-07-22 11:54 | Internal Med Progress Note ---
Subjective Date of Service: Jul 22, 2017 Physician Name Kiley Mckenna Attending Physician Eladio Coppola MD Current Medications Medications (Trade) Dose Ordered Sig/Cassius Route PRN Reason Start Time Stop Time Status Last Admin Dose Admin Amlodipine Besylate (Norvasc) 2.5 mg DAILY ORAL 07/19/17 09:00 08/18/17 08:59 07/22/17 09:36 Aspirin (Ecotrin) 325 mg DAILY ORAL 07/20/17 13:00 08/19/17 12:59 07/22/17 09:36 Atorvastatin Calcium (Lipitor) 10 mg BEDTIME ORAL 07/19/17 21:00 08/18/17 20:59 07/21/17 21:36 Bupropion HCl (Wellbutrin SR) 150 mg DAILY ORAL 07/19/17 09:00 08/18/17 08:59 07/22/17 09:36 Folic Acid (Folate) 1 mg DAILY ORAL 07/19/17 09:00 08/18/17 08:59 07/22/17 09:35 Levothyroxine Sodium (Synthroid) 25 mcg DAILY@0630 ORAL 07/19/17 06:30 08/18/17 06:29 07/22/17 06:38 Sodium Chloride 1,000 ml @ 75 mls/hr [id number] IV 07/20/17 09:30 08/19/17 09:29 07/22/17 01:46 Terazosin HCl (Hytrin) 2 mg BEDTIME ORAL 07/19/17 21:00 08/18/17 20:59 07/21/17 21:36 Tramadol HCl (Ultram) 50 mg Q8H PRN ORAL Pain 07/19/17 01:00 07/26/17 00:59 07/22/17 03:41 Zolpidem Tartrate (Ambien) 5 mg HSPRN PRN ORAL Insomnia 07/19/17 20:45 07/26/17 20:44 07/21/17 21:36 Allergies: Coded Allergies: No Known Allergies (Unverified , 02/20/14) ROS Limited/Unobtainable: No Constitutional: Reports: no symptoms HEENT: Reports: no symptoms Cardiovascular: Reports: no symptoms Respiratory: Reports: no symptoms Gastrointestinal/Abdominal: Reports: no symptoms Genitourinary: Reports: no symptoms Neurologic/Psychiatric: Reports: no symptoms Subjective 72 YO M admitted with syncope and right buttock pain. Now hematoma right buttock. Cover for Int [facility]-Dr Coppola. Objective Last Vital Signs Date Time Temp Pulse Resp B/P (MAP) Pulse Ox O2 Delivery O2 Flow Rate FiO2 07/22/17 09:36 75 126/63 07/22/17 08:00 98.2 18 99 Room Air 98.2 07/21/17 16:00 97.9 Laboratory Tests Test 07/22/17 06:20 White Blood Count 5.0 K/UL (4.8-10.8) Red Blood Count 3.31 M/UL (4.70-6.10) L Hemoglobin 10.8 G/DL (14.2-18.0) L Hematocrit 32.3 % (42.0-52.0) L Mean Corpuscular Volume 98 FL (80-99) Mean Corpuscular Hemoglobin 32.7 PG (27.0-31.0) H Mean Corpuscular Hemoglobin Concent 33.6 G/DL (32.0-36.0) Red Cell Distribution Width 11.4 % (11.6-14.8) L Platelet Count 131 K/UL (150-450) L Mean Platelet Volume 7.5 FL (6.5-10.1) Neutrophils (%) (Auto) 65.4 % (45.0-75.0) Lymphocytes (%) (Auto) 20.2 % (20.0-45.0) Monocytes (%) (Auto) 10.7 % (1.0-10.0) H Eosinophils (%) (Auto) 2.5 % (0.0-3.0) Basophils (%) (Auto) 1.1 % (0.0-2.0) Sodium Level 142 MMOL/L (136-145) Potassium Level 4.0 MMOL/L (3.5-5.1) Chloride Level 107 MMOL/L (98-107) Carbon Dioxide Level 29 MMOL/L (21-32) Anion Gap 7 mmol/L (5-15) Blood Urea Nitrogen 7 mg/dL (7-18) Creatinine 0.6 MG/DL (0.55-1.30) Estimat Glomerular Filtration Rate > 60 mL/min (>60) Glucose Level 94 MG/DL (74-106) Calcium Level 8.1 MG/DL (8.5-10.1) L Intake and Output 07/21/17 07/22/17 19:00 07:00 Intake Total 790 ml 240 ml Output Total 1175 ml Balance 790 ml -935 ml Intake Oral 790 ml 240 ml Output Urine Total 1175 ml # Voids 4 Objective General Appearance: WD/WN, no apparent distress, alert EENT: PERRL/EOMI, normal ENT inspection Neck: non-tender, normal alignment, supple, normal inspection Cardiovascular: normal peripheral pulses, normal rate, regular rhythm, no gallop/murmur, no JVD Respiratory/Chest: chest wall non-tender, lungs clear, normal breath sounds, no respiratory distress, no accessory muscle use Abdomen: normal bowel sounds, non tender, soft, no organomegaly, no mass Extremities: 30 cm ecchymosis right buttock with hematoma; normal range of motion, non-tender Neurologic: certified performance technologist II-XII grossly normal, no motor/sensory deficits Skin: normal pigmentation, warm/dry Assessment/Plan Problem List: (1) Hypertension Assessment & Plan: Continue norvasc (2) Throat cancer Assessment & Plan: S/p resection (3) DDD (degenerative disc disease), cervical (4) Hypercholesteremia Assessment & Plan: Continue lipitor. (5) Hypothyroidism Assessment & Plan: Continue synthroid (6) Major depression (7) Syncope Assessment & Plan: Neuro and cardiology workup in progress (8) Traumatic hematoma of buttock Assessment & Plan: Right. CT=no fracture. (9) Hematoma of right thigh Assessment & Plan: Conservative management. See Ortho consult. Status: stable Assessment/Plan Discharge home today. KILEY MCKENNA Jul 22, 2017 11:54
--- NOTE | 2017-07-22 11:55 | Pulmonology Progress Note ---
Assessment/Plan Problems: (1) Syncope (2) Hypothyroidism (3) Traumatic hematoma of buttock (4) Major depression Assessment/Plan neuro and ortho notes reviewed symptomatic treatment continue current BP meds and Synthyroid dc home with close f/u with primary dc meds done Subjective ROS Limited/Unobtainable: No Interval Events: no new complans, I was asked to evaluate the pt for discharge Allergies: Coded Allergies: No Known Allergies (Unverified , 02/20/14) Objective Last 24 Hour Vital Signs Date Time Temp Pulse Resp B/P (MAP) Pulse Ox O2 Delivery O2 Flow Rate FiO2 07/22/17 09:36 75 126/63 07/22/17 08:00 98.2 75 18 126/63 99 Room Air 98.2 07/22/17 08:00 70 07/22/17 04:00 66 07/22/17 00:00 70 07/22/17 00:00 97.0 76 19 133/72 99 97.0 07/21/17 20:00 97.9 69 19 148/83 100 97.9 07/21/17 20:00 69 07/21/17 16:00 66 07/21/17 16:00 97.9 77 19 143/75 98 Room Air 97.9 97.9 125/64 120/63 07/21/17 12:00 79 07/21/17 12:00 97.5 80 19 138/83 98 Room Air 98.0 97.5 Intake and Output 07/21/17 07/22/17 19:00 07:00 Intake Total 790 ml 240 ml Output Total 1175 ml Balance 790 ml -935 ml Intake Oral 790 ml 240 ml Output Urine Total 1175 ml # Voids 4 General Appearance: WD/WN HEENT: normocephalic, atraumatic Respiratory/Chest: chest wall non-tender, lungs clear, normal breath sounds Cardiovascular: normal peripheral pulses, normal rate, regular rhythm Abdomen: normal bowel sounds Genitourinary: normal external genitalia Extremities: no cyanosis Skin: no lesions, no ulcers Neurologic/Psychiatric: copywriter II-XII grossly normal, no motor/sensory deficits Lymphatic: no neck adenopathy Laboratory Tests 07/22/17 06:20: White Blood Count 5.0, Red Blood Count 3.31L, Hemoglobin 10.8L, Hematocrit 32.3L , Mean Corpuscular Volume 98, Mean Corpuscular Hemoglobin 32.7H, Mean Corpuscular Hemoglobin Concent 33.6, Red Cell Distribution Width 11.4L, Platelet Count 131L, Mean Platelet Volume 7.5, Neutrophils (%) (Auto) 65.4, Lymphocytes (%) (Auto) 20.2, Monocytes (%) (Auto) 10.7H, Eosinophils (%) (Auto) 2.5, Basophils (%) (Auto) 1.1, Sodium Level 142, Potassium Level 4.0, Chloride Level 107, Carbon Dioxide Level 29, Anion Gap 7, Blood Urea Nitrogen 7, Creatinine 0.6, Estimat Glomerular Filtration Rate > 60, Glucose Level 94, Calcium Level 8.1L Current Medications Medications (Trade) Dose Ordered Sig/Cassius Route PRN Reason Start Time Stop Time Status Last Admin Dose Admin Amlodipine Besylate (Norvasc) 2.5 mg DAILY ORAL 07/19/17 09:00 08/18/17 08:59 07/22/17 09:36 Aspirin (Ecotrin) 325 mg DAILY ORAL 07/20/17 13:00 08/19/17 12:59 07/22/17 09:36 Atorvastatin Calcium (Lipitor) 10 mg BEDTIME ORAL 07/19/17 21:00 08/18/17 20:59 07/21/17 21:36 Bupropion HCl (Wellbutrin SR) 150 mg DAILY ORAL 07/19/17 09:00 08/18/17 08:59 07/22/17 09:36 Folic Acid (Folate) 1 mg DAILY ORAL 07/19/17 09:00 08/18/17 08:59 07/22/17 09:35 Levothyroxine Sodium (Synthroid) 25 mcg DAILY@0630 ORAL 07/19/17 06:30 08/18/17 06:29 07/22/17 06:38 Sodium Chloride 1,000 ml @ 75 mls/hr [id number] IV 07/20/17 09:30 08/19/17 09:29 07/22/17 01:46 Terazosin HCl (Hytrin) 2 mg BEDTIME ORAL 07/19/17 21:00 08/18/17 20:59 07/21/17 21:36 Tramadol HCl (Ultram) 50 mg Q8H PRN ORAL Pain 07/19/17 01:00 07/26/17 00:59 07/22/17 03:41 Zolpidem Tartrate (Ambien) 5 mg HSPRN PRN ORAL Insomnia 07/19/17 20:45 07/26/17 20:44 07/21/17 21:36 Shira Mckeon MD Jul 22, 2017 11:55
[2017-07-22 12:00] VITALS: BP 147/95
--- NOTE | 2017-07-23 07:18 | Discharge Summary ---
Discharge Summary Discharge Summary Discharge Summary DATE OF ADMISSION: 07/18/2017 DATE OF DISCHARGE: 07/22/2017 REASON FOR ADMISSION: 72 years old male with past medical history significant for hypertension hypothyroidism, squamous cell carcinoma of the throat in 2001, status post surgery and radiation, depression, frequent falls, presented from home with the right buttock hematoma. Patient reported frequent falls about once a month. He stated that yesterday he fell dizzy and then fell to the ground. He apparently lost consciousness because he woke on the floor. He sustained a large hematoma to right buttock. Workup in emergency room revealed blood pressure 186/92, tachycardia 110, no anemia, no leukocytosis , troponin negative. EKG showed sinus rhythm, no acute ischemic changes, with T wave inversion in V3 V4 and V5. CT of the head revealed no acute intracranial pathology. Chest x-ray revealed no acute cardiopulmonary disease. Patient admitted with diagnosis of traumatic hematoma right buttock, syncopal episode, hypertension HOSPITAL COURSE: Patient admitted to telemetry floor. Neurology ,cardiology, orthopedic surgeon and pulmonary consults were requested. Serial troponin were negative and EKG showed no acute ischemic changes. Patient was ruled out for acute LA. No evidence of arrhythmia on telemetry. Echocardiogram revealed preserved ejection fraction of 65-70% with normal wall motion and right ventricular systolic pressure of 19. Blood pressure was managed with calcium channel ghanshyam. Statin and aspirin were continued. Per neurologist, reviewed CT of the head with no acute intracranial pathology noted. There was no evidence of seizure activity. Orthostatic vital signs were positive . Patient was given IV hydration. Patient was advised on adequate hydration at home. Patient undergone bilateral x-ray of the hip and CT of bilateral hip which revealed mild degenerate changes but no acute fracture and dislocation. Orthopedic surgeon seen and evaluated the patient. He recommended warm compresses and massage to break down the hematoma. Surgeon discussed with the patient alternating between warm compresses and ice which should help. He recommended physical therapy as outpatient if symptoms not resolve. patient was working with physical therapist. Fall precautions were maintained. TSH was elevated, and Synthroid dose was increased. Supplemental oxygen was on board along with pulmonary toilet provided on as needed. Pulse oximetry was stable on room air. Antidepressant was continued. Patient clinically improved and was stable for discharge FINAL DIAGNOSES: 1. Syncopal episode due to orthostatic changes 2. Traumatic hematoma of right buttock. 3. Hypertension. 4. Hypercholesterolemia. 5. Hypothyroidism. 6. History of squamous cell carcinoma of throat 7. Anxiety and depression DISCHARGE MEDICATIONS: See Medication Reconciliation list. DISCHARGE INSTRUCTIONS: Patient was discharged home Follow up with primary care provider in one week. I have been assigned to dictate discharge summary for this account. I was not involved in the patient's management. Vini ([facility] HospitalTigist Bond NP Jul 23, 2017 07:18
== END 2017-07-22 13:37 | disposition home or self-care (01) | DRG 605 ==
LOC: EMR 21:05 → 2E 21:15 → EDBEDREQ 22:11 → 2E 07-19 06:55
DX: S30.0XXA Contusion of lower back and pelvis, initial encounter (principal); W18.30XA Fall on same level, unspecified, initial encounter; Z91.81 History of falling; Y92.009 Unspecified place in unspecified non-institutional (private) residence as the place of occurrence of the external cause; E78.00 Pure hypercholesterolemia, unspecified; Z85.89 Personal history of malignant neoplasm of other organs and systems; Z92.3 Personal history of irradiation; I95.1 Orthostatic hypotension; W19.XXXA Unspecified fall, initial encounter; E03.9 Hypothyroidism, unspecified; F41.8 Other specified anxiety disorders; M47.892 Other spondylosis, cervical region; I10 Essential (primary) hypertension; N40.0 Benign prostatic hyperplasia without lower urinary tract symptoms
CPT/HCPCS: 36415; 70450; 71045; 80048; 80053; 81003; 82550; 83735; 83880; 84100; 84439; 84443; 84480; 84481; 84484; 85025; 85610; 85730; 90630; 90732; 93005; 93306; 99285; J8499